=== PATIENT | male | born 1940 | race Caucasian/White ===

== ENCOUNTER 2023-09-18 17:36 | Observation (INO) | payer MEDICARE ==
[2023-09-18] VITALS (17 sets, daily range): BP systolic 138–169; BP diastolic 58–122
[~2023-09-18] VITALS: Ht 162.6 cm; Wt 68.4 kg
--- NOTE | 2023-09-18 17:45 | NUR ---
PT TO ROOM VIA WC, FAMILY AT BEDSIDE, PT ABLE TO WALK TO BED WITHOUT ASSISTANCE.
[2023-09-18] MEDS ORDERED: ASPIRIN 81 MG/TAB PO ONE (18:05)
--- NOTE | 2023-09-18 18:21 | NUR ---
PT MEDICATED WITH CHEWABLE ASPIRIN TOLERATED WELL, FAMILY MEMBER AT BEDSIDE.
[2023-09-18] MEDS ORDERED: PLAVIX75 MG PO (18:25)
[2023-09-18 18:26] LABS: URINE BILIRUBIN - DIPSTICK Negative (NEGATIVE); URINE BLOOD DIPSTICK Negative (NEGATIVE); URINE GLUCOSE - DIPSTICK 500 mg/dL (NEGATIVE); URINE KETONE Negative (NEGATIVE); URINE LEUK ESTERASE Negative (NEGATIVE); URINE NITRITE - DIPSTICK Negative (Negative); URINE PROTEIN - DIPSTICK 100 mg/dL (NEG-TRACE); URINE SPECIFIC GRAVITY 1.015
[2023-09-18] MEDS ORDERED: PROTONIX40 M2 PO ×2 (18:26→18:27)
[2023-09-18] MEDS ORDERED: ISOSORB MONO30 MG PO (18:26)
[2023-09-18 18:27] LABS: BASO% 0.3 % (0-3); IMMATURE GRANULOCYTES 0.3 % (0.0-5.0); LYMPH% 17.6 % (15-41); MEAN CORPUSCULAR HGB 32.6 pG CALC (26.0-32.0); MEAN CORPUSCULAR HGB CONC 31.8 g/dL CAL (32.0-36.0); MONO% 6.2 % (2-13); NEUT# 2.89 thou/uL (1.82-7.42); NEUT% 74.6 % (42-76); RED BLOOD COUNT 3.28 mill/uL (4.70-6.10); RED CELL DISTRI WIDTH 18.6 % (11.5-15.5)
[2023-09-18] MEDS ORDERED: CARAFATE1 GM PO (18:27)
[2023-09-18 18:28] LABS: URINE COLOR Yellow
[2023-09-18] MEDS ORDERED: CORDARONE/200 MG/TAB PO (18:28)
[2023-09-18] MEDS ORDERED: ASPIRINCHW 81MG PO (18:28)
[2023-09-18] MEDS ORDERED: ATORVASTATIN CA40 MG PO (18:29)
[2023-09-18] MEDS ORDERED: AMLODIPINE BESY10 MG PO (18:29)
[2023-09-18] MEDS ORDERED: DAPAGLIFLOZIN PO (18:30)
[2023-09-18] MEDS ORDERED: FUROSEMIDE20 MG PO (18:32)
[2023-09-18] MEDS ORDERED: ALLERGY RE50 MCG/ACT IN (18:32)
[2023-09-18] MEDS ORDERED: COZAAR25 MG PO (18:34)
[2023-09-18] MEDS ORDERED: METFORMIN500 M2 PO (18:34)
[2023-09-18] MEDS ORDERED: MONTELUKAST SOD10 MG PO (18:35)
[2023-09-18] MEDS ORDERED: METOPROLOL100 M1 PO (18:35)
[2023-09-18 18:46] LABS: HEMATOCRIT 33.7 % (39.0-50.0); HEMOGLOBIN 10.7 g/dl (14.0-18.0); MEAN CELL VOLUME 102.7 fL CALC (80.0-100.0)
[2023-09-18 18:48] LABS: ALBUMIN 4.2 g/dL (3.2-5.0); ALKALINE PHOSPHATASE 142 u/l (38-126); BILIRUBIN, TOTAL 0.7 mg/dL (0.2-1.3); BUN 19 mg/dL (8-23); BUN/CREATININE RATIO 14 (12-20 (CALC)); CHLORIDE 97 mmol/l (95-108); CREATININE 1.4 mg/dL (0.7-1.3); GFR FOR AFR.AMER. 59 ML/MIN (>=60 (CALC)); GFR OTHER RACES 49 ML/MIN (>=60 (CALC)); POTASSIUM 3.5 mmol/l (3.5-5.1); SODIUM 140 mmol/l (137-146); TOTAL PROTEIN 7.7 g/dL (6.3-8.2)
[2023-09-18 18:54] LABS: ANION GAP 11 (6-22 (CALC)); CARBON DIOXIDE 36 mmol/l (22-30); SGOT/AST 96 u/l (19-48)
--- NOTE | 2023-09-18 19:10 | NUR ---
PATIENT CARE ASSUMED AT THIS TIME, PATIENT VOICES UNDERSTANDING OF CONTINUED PLAN OF CARE AT THIS TIME, PATIENT AWAITING ALL FURTHER RESULTS AT THIS TIME, VSS, FAMILY AT BEDSIDE.
--- NOTE | 2023-09-18 20:20 | NUR ---
PATIENT RESTING IN SEMI-FOWLERS POSITION AT THIS TIME, PATIENT UPDATED ON CONTINUOUS PLAN OF CARE, AWAITING ALL RESULTS AT THIS TIME, PATIENT VOICES MINIMAL DISCOMFORT TO (L) SHOULDER, MD AWARE, WILL CONTINUE TO MONITOR, VSS.
--- NOTE | 2023-09-18 21:00 | NUR ---
MD NOTIFIED OF ALL RESULTS, AWAITING ALL FURTHER ORDERS AT THIS TIME. PATIENT UPDATED ON CONTINUOUS PLAN OF CARE WITH NO FURTHER QUESTIONS AT THIS TIME.
[2023-09-18] MEDS ORDERED: MAGNESIUM HYDROXIDE 30 ML UDC PO PRN (21:10)
[2023-09-18] MEDS ORDERED: ACETAMINOPHEN 325 MG/TAB PO PRN (21:10)
[2023-09-18] MEDS ORDERED: ATENOLOL100 MG PO (21:11)
[2023-09-18] MEDS ORDERED: PANTOPRAZOLE SODIUM Sesquihydr 40 MG/TAB PO SCH (21:15)
[2023-09-18] MEDS ORDERED: hydrALAZINE HCL 20 MG/ML VIAL(1 ML) IV PRN (21:20)
--- NOTE | 2023-09-18 21:30 | NUR ---
PATIENT ASSISTED WITH USE OF URINAL AND BACK TO BED AT THIS TIME, UPDATED ON CONTINUOUS PLAN OF CARE, AWAITING ROOM ASSIGNMENT UPSTAIRS AT THIS TIME.
--- NOTE | 2023-09-18 22:15 | NUR ---
PATIENT MEDICATED PER ORDERS AT THIS TIME. PATIENT UPDATED ON CONTINUOUS PLAN OF CARE WITH NO FURTHER QUESTIONS OR CONCERNS AT THIS TIME, AWAITING ROOM ASSIGNMENT UPSTAIRS, PATIENT ADJUSTED IN BED, COMFORT MEASURES APPLIED, WILL CONTINUE TO MONITOR.
--- NOTE | 2023-09-18 23:15 | NUR ---
PATIENT RESTING TO (L) SIDE, UPDATED ON CONTINUOUS PLAN OF CARE AT THIS TIME, WILL CONTINUE TO MONITOR, PATIENT AWAITING ROOM ASSIGNMENT UPSTAIRS.
[2023-09-19] VITALS (11 sets, daily range): BP systolic 128–189; BP diastolic 63–77
--- NOTE | 2023-09-19 01:15 | NUR ---
REPORT CALLED TO HE[facility]ER VEL[facility] ON [facility] AT THIS TIME, PATIENT AWAITING TRANSPORT TO FLOOR AT THIS TIME.
--- NOTE | 2023-09-19 01:35 | NUR ---
PATIENT TRANSPORTED TO [facility] AT THIS TIME VIA WC, PATIENT AMB TO BR AND BACK TO BED, PATIENT NOTED TO HAVE INCREASED SOB WITH AMBULATION TO BR, PATIENT RECONNECTED TO 2LNC, NURSE AT BEDSIDE, TOTAL OUTPUT AT THIS TIME NOTED TO BE 650 ML AND VOID X1. NURSE/TIRE FINISHER AT BEDSIDE AT THIS TIME.
--- NOTE | 2023-09-19 02:00 | NUR ---
PATIENT ADMITTED FROM ER VIA WHEELCHAIR WITH ER STAFF IN ATTENDANCE. PATIENT MIN ASSIST TO TRANSFER TO BED. SOB WITH LITTLE OR NO EXHERSION. PATIENT PLACED ON O 2 VIA NASAL CANNULA AT 2LPM. O2 94% AT THIS TIME. PATIENT ADMITTED FOR CHEST PAIN-DENIES CHEST PAIN AT TH IS TIME-ONLY SOB. LUNGS WITH WHEEZING THROUGHOUT. WET PRODUCTIVE COUGH-WHITE SECREATIONS. PATIENT STATES NO O2 AT HOME. LIVES WITH SON AND HIS . RECENTLY RELOCATING TO [place] FROM [place]. NO LOCAL PCP. 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 PATIENT WITH BLE SWELLING-PULSES ARE PALPABLE. VOIDING YELLOW URINE IN URINAL. INSTRUCTED REGUARDING STRICT I&O. ORIENTED TO ROOM AND SURROUNDINGS. INSTRUCTED ON USE OF NURSE CALL LIGHT SYSTEM. SAFEFTY PRECAUTIONS REINFORCED. CALL LIGHT IN REACH. WILL CONT TO MONITOR.
--- NOTE | 2023-09-19 04:42 | NUR ---
PATIENT RESTING IN BED WITH HOB SLIGHTLY ELEVATED. PATIENT CONT TO HAVE WET COUGH WITH WHITE TO YELLOW SECREATION. O2 VIA NASAL CANNULA IN PLACE AT 2LPM WITH O2 SAT 96%. TELE MONITOR IN PLACE. SALINE LOCK TO RAC INTACT AND HEALTHY WITH GOOD BLOOD RETURN WHEN FLUSHED. VOIDED 100CC OF YELLOW URINE IN URINAL. SAFETY PRECAUTIONS REINFORCED. CALL LIGHT IN REACH. WILL CONT TO MONITOR.
[2023-09-19 05:32] LABS: BASO% 0.3 % (0-3); EOS% 1.9 % (0-8); HEMATOCRIT 30.7 % (39.0-50.0); HEMOGLOBIN 9.7 g/dl (14.0-18.0); IMMATURE GRANULOCYTES 0.6 % (0.0-5.0); LYMPH% 16.4 % (15-41); MEAN CELL VOLUME 104.8 fL CALC (80.0-100.0); MEAN CORPUSCULAR HGB 33.1 pG CALC (26.0-32.0); MEAN CORPUSCULAR HGB CONC 31.6 g/dL CAL (32.0-36.0); MONO% 6.9 % (2-13); NEUT# 2.66 thou/uL (1.82-7.42); NEUT% 73.9 % (42-76); RED BLOOD COUNT 2.93 mill/uL (4.70-6.10); RED CELL DISTRI WIDTH 18.5 % (11.5-15.5)
[2023-09-19 05:47] LABS: ALBUMIN 3.4 g/dL (3.2-5.0); ALKALINE PHOSPHATASE 115 u/l (38-126); ANION GAP 7 (6-22 (CALC)); BILIRUBIN, TOTAL 0.7 mg/dL (0.2-1.3); BUN 18 mg/dL (8-23); BUN/CREATININE RATIO 15 (12-20 (CALC)); CARBON DIOXIDE 38 mmol/l (22-30); CHLORIDE 99 mmol/l (95-108); CREATININE 1.1 mg/dL (0.7-1.3); GFR FOR AFR.AMER. > 60 ML/MIN (>=60 (CALC)); GFR OTHER RACES > 60 ML/MIN (>=60 (CALC)); POTASSIUM 3.7 mmol/l (3.5-5.1); SGOT/AST 105 u/l (19-48); SODIUM 140 mmol/l (137-146)
[2023-09-19 05:48] LABS: TOTAL PROTEIN 6.1 g/dL (6.3-8.2)
--- NOTE | 2023-09-19 07:00 | NUR ---
BEDSIDE REPORT RECIEVED
--- NOTE | 2023-09-19 07:30 | NUR ---
patient glucose level is 113, nurse notified .
[2023-09-19] MEDS ORDERED: amLODIPine BESYLATE 5 MG/TAB PO SCH (09:00)
[2023-09-19] MEDS ORDERED: ATORVASTATIN CALCIUM 40 MG/TAB PO SCH (09:00)
[2023-09-19] MEDS ORDERED: CLOPIDOGREL BISULFATE 75 MG/TAB TAB PO SCH (09:00)
[2023-09-19] MEDS ORDERED: AMIODARONE 200 MG/TAB PO SCH (09:00)
--- NOTE | 2023-09-19 09:06 | NUR ---
PT RESTING IN SEMI FOWLERS POSITION WITH BROTHER AT BEDSIDE. PT A/OX3. RESPIRATIONS EVEN UNLABORED ON 2L NC. NOT O2 DEPENDENT AT HOME. CRACKLES NOTED UPON ASCULATATION OF LUNGS. PT REPORTS PRODUCTIVE COUGH LAST NIGHT WITH WHITE SPUTUM. PT DENIES COUGH SINCE AWAKENING. I.S PROVIDED AND PT INSTRUCTED ON USE. ABLE TO REACH 500-100 AT THIS TIME. HEART RHYTHM NORMAL WITH TELE IN PLACE. BOWEL SOUNDS ACTIVE, LBM 09/18/23 . #20G RAC PATENT. SKIN INTACT. 1+ EDEMA NOTED TO BLE. GLUCOSE 113, NO COVERAGE. PT DENIES OF ANY PAINS AT THIS TIME. ALL SAFETY PRECAUTIONS ARE IN PLACE WITH CALL LIGHT IN REACH
[2023-09-19] MEDS ORDERED: POTASSIUM CHLORIDE 20 MEQ/TAB PO SCH (10:00)
[2023-09-19] MEDS ORDERED: ASPIRIN 81 MG/TAB PO SCH (10:00)
[2023-09-19] MEDS ORDERED: ATENOLOL 50 MG/TAB PO SCH (11:50)
--- NOTE | 2023-09-19 11:58 | NUR ---
PT RESTING IN SEMI FOWLERS POSITION FAMILY AT BEDSIDE.RESPIRATIONS EVEN AND UNLABORED ON 2L NC. TELE MONITORING IN PLACE. SCHEDULE MEDICATIONS ADMINISTERED. GLUCOSE 131, NO COVERAGE. PT DENIES OF ANY NEEDS. ALL SAFETY PRECAUTIONS ARE IN PLACE WITH CALL LIGHT IN REACH.
[2023-09-19] MEDS ORDERED: LOSARTAN Potassium 25 MG/TAB PO SCH (13:00)
[2023-09-19] MEDS ORDERED: ISOSORBIDE MONONITRATE 30 MG TAB PO SCH (13:00)
[2023-09-19] MEDS ORDERED: GUAIFENESIN 600 MG/TAB PO SCH (13:00)
[2023-09-19] MEDS ORDERED: MONTELUKAST SODIUM 10 MG/TAB PO SCH (13:00)
[2023-09-19] MEDS ORDERED: FUROSEMIDE 40 MG/4 ML SDV IV SCH (13:00)
[2023-09-19] MEDS ORDERED: DOXYCYCLINE HYCLATE 100 MG in SODIUM CHLORIDE 0.9% 100 ML IV SCH (14:00)
[2023-09-19] MEDS ORDERED: IPRATROPIUM-Albuterol 0.5MG-2.5MG/3 ML NEB SCH (15:00)
--- NOTE | 2023-09-19 16:40 | NUR ---
PT RESTING IN SEMI FOWLERS POSITION. RESPIRATIONS EVEN AND UNLABORED ON O2. O2 INCREASED TO 3L NC . TELE MONITORING IN PLACE. #20G RAC PATENT. PT DENIES OF ANY NEEDS AT THIS TIME. ALL SAFETY PRECAUTIONS ARE IN PLACE WITH CALL LIGHT IN REACH
[2023-09-19] MEDS ORDERED: SUCRALFATE 1 GM/TAB PO SCH (17:00)
[2023-09-19] MEDS ORDERED: METOPROLOL SUCCINATE 100 MG/TAB PO SCH (18:30)
--- NOTE | 2023-09-19 20:10 | NUR ---
RECEIEVED BEDSIDE REPORT FROM DAYSHIFT NURSE. PT IS AWARE OF CHANGE OF CHIFT AND OF NURSE. PT DENIES OF HAVING PAIN AT THIS MOMENT. PLAN OF CARE HAS BEEN ESTABLISHED. SAFETY PRECAUTIONS IN PLACE AND CALL LIGHT WITHIN REACH.
[2023-09-19] MEDS ORDERED: ENOXAPARIN SODIUM 40 MG/0.4 ML SYR SC SCH (21:00)
--- NOTE | 2023-09-20 00:20 | NUR ---
PT IS SLEEPING COMFORTABLY IN BED AT THIS MOMENT. PT SHOWS NO SIGNS OF PAIN OR DISTRESS AT THIS MOMENT. SAFETY PRECAUTION IN PLACE CALL LIGHT WITHIN REACH.
[2023-09-20 01:42] VITALS: BP 118/54
--- NOTE | 2023-09-20 04:20 | NUR ---
PT IS IN BED AT THIS MOPMENT SLEEPING COMFORTABLY IJN BED. PT SHOWS NO SIGNS OF PAIN OR DISSCOMFORT. SAFETY PRECAUTIONS IN PLACE AND CALL LIGHT EITHIN REACH.
[2023-09-20 05:01] VITALS: BP 147/68
[2023-09-20 05:47] LABS: BASO% 0.4 % (0-3); EOS% 1.9 % (0-8); HEMOGLOBIN 9.6 g/dl (14.0-18.0); IMMATURE GRANULOCYTES 0.4 % (0.0-5.0); LYMPH% 20.9 % (15-41); MEAN CELL VOLUME 105.4 fL CALC (80.0-100.0); MEAN CORPUSCULAR HGB 32.7 pG CALC (26.0-32.0); MONO% 7.5 % (2-13); NEUT# 1.85 thou/uL (1.82-7.42); NEUT% 68.9 % (42-76); RED BLOOD COUNT 2.94 mill/uL (4.70-6.10); RED CELL DISTRI WIDTH 18.7 % (11.5-15.5)
[2023-09-20 05:50] LABS: ALBUMIN 3.6 g/dL (3.2-5.0); ALKALINE PHOSPHATASE 121 u/l (38-126); ANION GAP 9 (6-22 (CALC)); BILIRUBIN, TOTAL 0.5 mg/dL (0.2-1.3); BUN 18 mg/dL (8-23); BUN/CREATININE RATIO 15 (12-20 (CALC)); CARBON DIOXIDE 35 mmol/l (22-30); CHLORIDE 102 mmol/l (95-108); CREATININE 1.2 mg/dL (0.7-1.3); GFR FOR AFR.AMER. > 60 ML/MIN (>=60 (CALC)); GFR OTHER RACES 58 ML/MIN (>=60 (CALC)); MAGNESIUM 2.2 mg/dL (1.6-2.3); POTASSIUM 3.8 mmol/l (3.5-5.1); SGOT/AST 96 u/l (19-48); SODIUM 142 mmol/l (137-146); TOTAL PROTEIN 6.3 g/dL (6.3-8.2)
[2023-09-20 07:41] VITALS: BP 157/71
--- NOTE | 2023-09-20 07:54 | NUR ---
PATIENT UP TO SIDE OF BED EATING BREAKFAST. VISITOR AT BEDSIDE. DENIES ANY CHEST PAIN AT THIS TIME. ALERT AND ORIENTED X 3. BREATHING EVEN AND UNLABORED ON 3L NC, PATIENT DENIES USING OXYGEN AT HOME. LUNGS CLEAR/DIMINISHED TO ASCULTATION. 20 RAC FLUSHES WELL. LAST BM 09/18. SAFETY MEASURES IN PLACE INCLUDING BED IN LOW POSITION AND CALL LIGHT RESTING NEXT TO L LEG. NO APPARENT DISTRESS NOTED. WILL CONTINUE WITH PLAN OF CARE.
--- NOTE | 2023-09-20 08:40 | NUR ---
DR. ISAACS TELE-ROUNDING AT BEDSIDE. PATIENT ADVISED ISSUES MAY BE PULM VS CARDIO RELATED. PATIENT CLEARED BY CARDIOLOGY. OXYGEN DISCONTINUED PER PATIENT REQUEST, PATIENT DOES NOT USE OXYGEN AT HOME AND WOULD LIKE TO ENSURE HE CAN TOLERATE RA AFTER DISCHARGE.
[2023-09-20] MEDS ORDERED: ATENOLOL 50 MG/TAB PO SCH (09:00)
[2023-09-20] MEDS ORDERED: METOPROLOL SUCCINATE 100 MG/TAB PO SCH (09:00)
[2023-09-20] MEDS ORDERED: LASIX 20 MG TAB20 MG PO (11:02)
[2023-09-20 11:14] VITALS: BP 130/63
[2023-09-20] MEDS ORDERED: OMNICEF300 M1 PO (11:35)
[2023-09-20] MEDS ORDERED: VIBRAMYCIN100 M2 PO (11:35)
--- NOTE | 2023-09-20 11:56 | NUR ---
PATIENT UP TO SIDE OF BED. FAMILY MEMBER AT BEDSIDE. STATES HE IS HAVING SOME IRRITATION IN HIS NOSE FROM NASAL CANNULA. AWAITING 6 MINUTE WALK TEST. NO APPARENT DISTRESS NOTED. WILL CONTINUE WITH PLAN OF CARE.
--- NOTE | 2023-09-20 13:29 | NUR ---
Discharge instructions given. Patient verbalizes understanding of same. Discharged in stable condition via Wheelchair to Home with family. All belongings sent with pt.
== END 2023-09-20 16:35 | disposition home or self-care (01) ==
LOC: ED 17:36 → EDBD 17:36 → ED-I 20:31 → ED 20:31 → ED-I 20:53 → ED 21:09 → MS2 21:10 → ED-I 21:10 → MS2 09-19 00:25
PROVIDERS: Nurse Practitioner; Nurse Practitioner Family; Student in an Organized Health Care Education/Training Program; ADMIT Internal Medicine; ATTEND Internal Medicine
DX: R07.89 Other chest pain (principal); I11.0 Hypertensive heart disease with heart failure; I50.9 Heart failure, unspecified; E11.9 Type 2 diabetes mellitus without complications; J40 Bronchitis, not specified as acute or chronic; I25.10 Atherosclerotic heart disease of native coronary artery without angina pectoris; I65.29 Occlusion and stenosis of unspecified carotid artery; H35.30 Unspecified macular degeneration; H54.8 Legal blindness, as defined in USA; E78.5 Hyperlipidemia, unspecified; I25.2 Old myocardial infarction; Z79.84 Long term (current) use of oral hypoglycemic drugs; Z95.5 Presence of coronary angioplasty implant and graft; Z98.890 Other specified postprocedural states; Z95.818 Presence of other cardiac implants and grafts; Z79.02 Long term (current) use of antithrombotics/antiplatelets; Z79.82 Long term (current) use of aspirin
CPT/HCPCS: J1650